=== PATIENT | female | born 1985 | race Caucasian/White ===

== ENCOUNTER 2018-08-09 10:29 | Day surgery (SDC) | payer OTHER ==
[~2018-08-09 10:29] MED LIST: DESFLURANE 15 MIN
[2018-08-09] MEDS ORDERED: MIDAZOLAM 1 MG/ML 2 ML INJ (12:14)
[2018-08-09] MEDS ORDERED: PROPOFOL 20 ML (12:23)
[2018-08-09] MEDS ORDERED: ONDANSETRON 4 MG INJ (12:23)
[2018-08-09] MEDS ORDERED: METOCLOPRAMIDE 10 MG INJ (12:23)
[2018-08-09] MEDS ORDERED: ROCURONIUM 50 MG INJ (12:23)
[2018-08-09] MEDS ORDERED: DIPHENHYDRAMINE 50 MG INJ (12:24)
[2018-08-09] MEDS ORDERED: DEXAMETHASONE 4 MG/ML 5 ML INJ (12:24)
[2018-08-09] MEDS ORDERED: OXYCODONE/ACETAMINOPHEN (5/325) TAB PO (12:30)
[2018-08-09] MEDS ORDERED: MEPERIDINE 25 MG INJ IV (12:30)
[2018-08-09] MEDS ORDERED: HYDROmorphONE 1 MG/5 ML IV SYRINGE IV ×3 (12:30)
[2018-08-09] MEDS ORDERED: DIPHENHYDRAMINE 50 MG INJ IV (12:30)
[2018-08-09] MEDS ORDERED: FENTAnyl 50 MCG/ML VIAL IV ×2 (12:30)
[2018-08-09] MEDS: LIDOCAINE 1%/EPI (1:100,000) (MDV) 20 ML (12:52)
[2018-08-09] MEDS: OXYMETAZOLINE 0.05% 15 ML NAS SPRAY NASAL (12:53)
[2018-08-09] MEDS: FENTAnyl 50 MCG/ML VIAL IV ×2 (14:33→15:04)
[2018-08-09] MEDS: ONDANSETRON 4 MG INJ IV (14:33)
[2018-08-09] MEDS: OXYCODONE/ACETAMINOPHEN (5/325) TAB PO (15:38)
== END 2018-08-09 16:22 | disposition home or self-care (01) ==
LOC: SDS 10:29
DX: J34.2 Deviated nasal septum (principal); J34.3 Hypertrophy of nasal turbinates; J32.9 Chronic sinusitis, unspecified
CPT/HCPCS: 30140; 84703; 88300; 88304